=== PATIENT | male | born 1965 | race Caucasian/White ===

== ENCOUNTER → 2020-12-29 08:05 | Outpatient (BNVA) | payer MEDICARE, MEDICAID, SELFPAY | PROVIDERS: PCP Family Medicine; Visit Provider Nurse Practitioner Family | DX: G89.29 Other chronic pain (principal); M47.816 Spondylosis without myelopathy or radiculopathy, lumbar region | CPT/HCPCS: 99202 ==

== ENCOUNTER 2021-04-01 07:26 | Day surgery (SDC) | payer MEDICARE, MEDICAID, SELFPAY ==
--- NOTE | 2021-03-31 09:42 | P.CONAN_ITS ---
Documented by User: Barbara Manning NP 03/31/21 09:43 HPI - Anesthesia Eval Consult details Narrative: 56yo M for Lumbar Spinal Cord Stimulation Trial PMF Active Problems Active Problems: All Active Problems (Updated 03/23/21 @ 13:01 by Alis Pierre RN) Chronic pain (Acute) Spondylosis of lumbar region without myelopathy or radiculopathy (Acute) Diabetic neuropathy (Acute) Past Medical History Medical History Ankylosing spondylitis Anxiety disorder Arthritis Asthma Chronic pain Cluster headache Diabetes mellitus Diabetic neuropathy GERD (gastroesophageal reflux disease) Incontinence Low testosterone Surgical History Surgical History History of back surgery History of shoulder surgery Hx of knee surgery Social History Social History Patient Tobacco Use Status: Former Tobacco user Are you DNR?: Yes Advance Directives: No Advance Directives Information Provided: Yes Meds Allergies Allergy/AdvReac Type Severity Reaction Status Date / Time Sulfa (Sulfonamide Allergy Severe Seizure Verified 03/23/21 12:44 Antibiotics) Home Medications Medication Instructions Recorded Confirmed Last Taken Type adalimumab 40 mg/0.4 mL 40 mg SUBCUT Q2W 12/29/20 03/23/21 Unknown History subcutaneous syringe kit (Humira(CF)) budesonide-formoterol HFA 160 2 puff INHALATION BID 12/29/20 03/23/21 Unknown History mcg-4.5 mcg/actuation aerosol inhaler (Symbicort) cholecalciferol (vitamin D3) 50 50 mcg PO DAILY 12/29/20 03/23/21 Unknown History mcg (2,000 unit) capsule clonazepam 0.5 mg tablet 0.5 mg PO BEDTIME 12/29/20 03/23/21 Unknown History clotrimazole-betamethasone 1 1 appl TOPICAL BID 12/29/20 03/23/21 Unknown History %-0.05 % topical cream docusate sodium 100 mg capsule 100 mg PO BID 12/29/20 03/23/21 Unknown History (DOK) hydrocodone 10 mg-acetaminophen 1 tab PO TID PRN tab 12/29/20 03/23/21 Unknown History 325 mg tablet omeprazole 20 mg capsule,delayed 20 mg PO DAILY 12/29/20 03/23/21 Unknown History release polyethylene glycol 3350 17 gram 17 g PO DAILY 12/29/20 03/23/21 Unknown History oral powder packet ropinirole 0.25 mg tablet 0.25 mg PO BEDTIME 12/29/20 03/23/21 Unknown History rosuvastatin 40 mg tablet 40 mg PO DAILY 12/29/20 03/23/21 Unknown History sertraline 100 mg tablet 100 mg PO DAILY 12/29/20 03/23/21 Unknown History sumatriptan 20 mg/actuation nasal 20 mg INTRANASAL Q2H PRN 12/29/20 03/23/21 Unknown History spray testosterone enanthate 200 mg/mL 50 mg IM QWEEK 12/29/20 03/23/21 Unknown History intramuscular syringe ergocalciferol (vitamin D2) 1,250 1 cap PO QWEEK 03/23/21 03/23/21 Unknown History mcg (50,000 unit) capsule Exam Exam Date and Time: March 31, 2021941 Assessment and Plan Assessment Anesthesia Assessment: Chart Reviewed Documented by User: Rossana Ray MD 04/01/21 08:13 [facility] Active Problems Active Problems: All Active Problems (Updated 03/23/21 @ 13:01 by Alis Pierre RN) Chronic pain (Acute) Spondylosis of lumbar region without myelopathy or radiculopathy (Acute) Diabetic neuropathy (Acute) Patient denies h/o diabetes. No medication MIAH. On CPAP. Uses intermittently Obesity Past Medical History Medical History Ankylosing spondylitis Anxiety disorder Arthritis Asthma Chronic pain Cluster headache Diabetes mellitus Diabetic neuropathy GERD (gastroesophageal reflux disease) Incontinence Low testosterone Family History Family history of problems with anesthesia: No Surgical History Surgical History History of back surgery History of shoulder surgery Hx of knee surgery History of Problems with Anesthesia: No Social History Social History Patient Tobacco Use Status: Former Tobacco user Are you DNR?: Yes Advance Directives: No Advance Directives Information Provided: Yes Meds Allergies Allergy/AdvReac Type Severity Reaction Status Date / Time Sulfa (Sulfonamide Allergy Severe Seizure Verified 03/23/21 12:44 Antibiotics) Home Medications Medication Instructions Recorded Confirmed Last Taken Type adalimumab 40 mg/0.4 mL 40 mg SUBCUT Q2W 12/29/20 03/23/21 Unknown History subcutaneous syringe kit (Humira(CF)) budesonide-formoterol HFA 160 2 puff INHALATION BID 12/29/20 03/23/21 Unknown History mcg-4.5 mcg/actuation aerosol inhaler (Symbicort) cholecalciferol (vitamin D3) 50 50 mcg PO DAILY 12/29/20 03/23/21 Unknown History mcg (2,000 unit) capsule clonazepam 0.5 mg tablet 0.5 mg PO BEDTIME 12/29/20 03/23/21 Unknown History clotrimazole-betamethasone 1 1 appl TOPICAL BID 12/29/20 03/23/21 Unknown History %-0.05 % topical cream docusate sodium 100 mg capsule 100 mg PO BID 12/29/20 03/23/21 Unknown History (DOK) hydrocodone 10 mg-acetaminophen 1 tab PO TID PRN tab 12/29/20 03/23/21 Unknown History 325 mg tablet omeprazole 20 mg capsule,delayed 20 mg PO DAILY 12/29/20 03/23/21 Unknown History release polyethylene glycol 3350 17 gram 17 g PO DAILY 12/29/20 03/23/21 Unknown History oral powder packet ropinirole 0.25 mg tablet 0.25 mg PO BEDTIME 12/29/20 03/23/21 Unknown History rosuvastatin 40 mg tablet 40 mg PO DAILY 12/29/20 03/23/21 Unknown History sertraline 100 mg tablet 100 mg PO DAILY 12/29/20 03/23/21 Unknown History sumatriptan 20 mg/actuation nasal 20 mg INTRANASAL Q2H PRN 12/29/20 03/23/21 Unknown History spray testosterone enanthate 200 mg/mL 50 mg IM QWEEK 12/29/20 03/23/21 Unknown History intramuscular syringe ergocalciferol (vitamin D2) 1,250 1 cap PO QWEEK 03/23/21 03/23/21 Unknown History mcg (50,000 unit) capsule Exam Height,Weight and Vital Signs: Height 5 ft 5 in Weight 111.13 kg Airway Mallampati Class: III TM Dist: >3cm Neck ROM: Full Loose/Missing/Broken Teeth: Yes (Extraction) Heart: RRR Lungs: CTAB Assessment and Plan Assessment Anesthesia Assessment: Anesthesia Plan Discussed Final Anesthetic Review Family History of Problems with Anesthesia: No History of Problems with Anesthesia: No NPO: Yes ASA Class: III Final Preanesthetic Review: No Changes in Pt Med Stat, Meds/Allgs Chart Reviewed, Consent Obtained/Reviewed, Anes Risks/Benef Reviewed and DNR Form (If Appl.) Patient Risk: Intermediate Procedure Risk: Low Assessment/Block/Sedation in SS: Assess/Block/Sedation-SS Anesthetic Plan Anesthetic Plan: GA Disposition: Standard PACU
[2021-04-01] VITALS (9 sets, daily range): BP systolic 116–149; BP diastolic 56–81; PULSE 62–87; RESP 16–20; TEMP 36.2–36.9; O2SAT 96–99; BMI 40.7
--- NOTE | ~2021-04-01 | FL_ITS ---
EXAMINATION: XR FLUOROSCOPY WITH IMAGES CLINICAL INFORMATION: Spinal cord stimulator trial. COMPARISON: None TECHNIQUE: Fluoroscopy performed by Dr. Eduardo Mondragon. Fluoroscopy time: 15.2 minutes DAP: 88.0 mGycm2 Images: 2 FINDINGS: There are posterior epidural electrodes extending from T9 through T12 vertebrae. There are moderate right bridging osteophytes from T8-T9 through T11-T12 disc levels. No aggressive lytic or sclerotic process seen. FL/FL guidance in OR IMPRESSION: Fluoroscopy was provided to referring physician for pain management.
--- NOTE | 2021-04-01 08:00 | MHC.SHP ---
Pre-Procedural Eval Section A Date of Service: 04/01/21 Section B Chief Complaint: type ii diabetes mellitus with neuropathy Details of Present Illness: as above, as well as spondylosis lumbar spine without radiculo Relevant Family History (Specify if Yes): No Relevant Social History: None Present Medications: None Medical History: Significant History (DM type two) History of Previous Operations: No relevant previous surgery Allergies: Allergies Allergy/AdvReac Type Severity Reaction Status Date / Time Sulfa (Sulfonamide Allergy Severe Seizure Verified 03/23/21 12:44 Antibiotics) Review of Systems Sugical H&P ROS: Negative: Cardiovascular, Respiratory, Neurological, Psychiatric, Hem-Onc, Allergic/Immunologic, Gastrointestinal, Genitourinary, Integumentary and Eyes/Ears/Nose/Throat and Yes, Specify: Constitution (korbid obesity), Musculoskeletal (spondylosis lumbar spine without myelo or radiculopathy) and Endocrine (DM II) Exam Surgical H&P Exam: Normal: HEENT, Normal: Heart, Normal: Lungs, Normal: Extremities, Normal: Skin and Normal: Neurological and Significant Findings: Abdomen (greatly enlarged) Plan Diagnosis/Plan: Unchanged I have reviewed the history and physical and performed a pertinent physical examination on my patient. No changes have occurred unless specified.
--- NOTE | 2021-04-01 08:04 | P.OP_ITS ---
Operative Note Operative Note Date of Service: 04/01/21 Narrative: Gael is a very pleasant 56 y.o. old gentleman? who came today into the operating room for trial of spinal cord stimulator for the treatment of neuropathy of bilateral lower extremities and low back pain secondary sponylos is. Preoperatively patient received cefasolin 2 g approximately 30 minutes before the procedure. After obtaining informed consent the patient was brought to the operating room, HE was positioned supine on the stretcher, [place] [employer] monitors were applied and patient was administered general endotracheal anesthesia. The patient after that was transferred on the OR table prone, all pressure points were protected. ?Time-out was performed delineating correct site, side, the nature of the procedure, patient's allergy, preoperative antibiotic if needed.? All operating room staff was participating in OR time-out procedure. Patient's entire back was prepped with ChloraPrep twice and draped with full body fenestrated drape.? Sterilely draped C-arm was brought over operating field and sqare picture of T12, L1, L2, L3 vertebrae as were demonstrated on the screen.? Attention FIRST? was concentrated on the T12-L1 epidural interspace on the right.? The location of the projection of the right pedicle center of the? L2 vertebra was found on the skin using C-arm.? This location was injected with mixture of lidocaine 2% and Marcaine 0.5% 5 cc.? After that 11 blade was used to make a suman on the skin.? 10 cm 14 gauge? introducer epidural needle was inserted through the suman and advanced to? [id number] interspace.? The advancement of the needle was performed on anterior posterior and lateral views.? Guitar wire and loss of resistance technique were used to locate epidural space.? When guitar wire was spread in the epidural fashion, epidural lead was inserted through the needle and attempt was made to advance epidural electrode array lead to T8 position in the posterior epidural space. it was very difficult to advance epidural lead in the posterior epidural space. Eventually epidural lead went through the dura matter and we observe CSF coming from the needle. The needle was withdrawn and pressure was applied. After that location of the projection of the LEFT pedicle center of the L2 vertebra was found on the skin using C-arm.? This location was injected with mixture of lidocaine 2% and Marcaine 0.5% 5 cc.? After that 11 blade was used to make a suman on the skin.? 10 cm 14 gauge curved introducer epidural needle was inserted through the suman and advanced [id number] epidural interspace on the left.? The advancement of the needle was performed on anterior posterior and lateral views.? Guitar wire and loss of resistance technique were used to locate epidural space.? When guitar wire was spread in the epidural fashion, epidural lead was inserted through the needle and advanced to the middle of T8 epidural interspace strictly at the midline.The locstion of the lead in the posterior epidural space was verified on lateral view. After that location of the projection of the right pedicle center of the L3 vertebra was found on the skin using C-arm.? This location was injected with mixture of lidocaine 2% and Marcaine 0.5% 5 cc.? After that 11 blade was used to make a suman on the skin.? 10 cm 14 gauge curved introducer epidural needle was inserted through the suman and advanced to L1-L2 epidural interspace.? The advancement of the needle was performed on anterior posterior and lateral views.? Guitar wire and loss of resistance technique were used to locate epidu ral space.? When guitar wire was spread in the epidural fashion, epidural lead was inserted through the needle and advanced to the middle of T8 epidural interspace slightly right to the existing epidural lead. The needles were withdrawn, the stylette wires were removed from the epidural leads.? The anchoring devices were dislodged on the leads and advanced to the level of the skin.? The anchoring devices were sutured with two 0-0 silk sutures per each anchor to the skin of the patient. The central fixation screw of each anchor was rotated until three clicks were heard. The leads were connected to testing device.? Impedance was checked and was satisfactory Bacitracin ointment was applied to the entrance point of bilateral needles.? Sterile dressing was applied to the patient's back.? The testing device was also glued to the patient's back.? After completion of the procedure the patient was turned supine , awaken and extubated, he was transfered to PACU. He recovered uneventfully in PACU reporting slight frontal headache. Fioricet was prescribed, conservative management of PDPH was explained to the patient.
[2021-04-01] MEDS: Lactated Ringers 1,000 ML 100 ML IVCONT (08:07)
--- NOTE | 2021-04-01 10:28 | PM.OP ---
Brief Operative Note Date of Service: 04/01/21 Pre-op diagnosis: spondylosis lumbar spine, diabetic polyneuropathy Post-op diagnosis: same Procedure: trial of Nevro HF10 Spinal cord stimulation Implants: Nothing permanent Surgeon: Eduardo Mondragon MD Anesthesia: GETA Was an Pyrometer Temperature Regulator used for this Procedure?: No Estimated blood loss (mL): 3 Pathology: none sent Condition: stable Disposition: PACU
[2021-04-01] MEDS: Butalb/Acetamin/Caff 50/325/40 TABLET 1 TAB PO (11:01)
== END 2021-04-01 12:31 | disposition home or self-care (01) ==
PROVIDERS: PCP Family Medicine; Visit Provider Anesthesiology
PROC: (CPT 63650; principal; 2021-04-01 08:40)
DX: M47.816 Spondylosis without myelopathy or radiculopathy, lumbar region (principal); M45.7 Ankylosing spondylitis of lumbosacral region; M54.50 Low back pain, unspecified; G89.29 Other chronic pain; E11.42 Type 2 diabetes mellitus with diabetic polyneuropathy; N31.9 Neuromuscular dysfunction of bladder, unspecified; Z79.899 Other long term (current) drug therapy; Z88.2 Allergy status to sulfonamides; Z87.828 Personal history of other (healed) physical injury and trauma; Z91.81 History of falling; Z87.891 Personal history of nicotine dependence
CPT/HCPCS: 63650 ×2; C1713; C1778; J0330; J0690; J1100; J2250; J2405; J3010

== ENCOUNTER → 2021-04-07 08:19 | Outpatient (BNVA) | payer MEDICARE, MEDICAID, SELFPAY | PROVIDERS: PCP Family Medicine; Visit Provider Anesthesiology | DX: M47.816 Spondylosis without myelopathy or radiculopathy, lumbar region (principal); G89.29 Other chronic pain; E11.40 Type 2 diabetes mellitus with diabetic neuropathy, unspecified | CPT/HCPCS: 99212 ==

== ENCOUNTER 2021-05-20 07:43 | Day surgery (SDC) | payer MEDICARE, MEDICAID, SELFPAY ==
[2021-05-16 11:03] VITALS: BMI 40.7
--- NOTE | 2021-05-19 09:06 | HO.ANESPROP2 ---
Documented by User: Barbara Manning NP 05/19/21 09:08 HPI - Anesthesia Eval Consult details Narrative: 56yo M for Spinal Cord Stimulation Implant s/p trial 03/2021 with GA-ETT 7.5 PMFSH Active Problems Active Problems: All Active Problems (Updated 05/16/21 @ 11:06 by Vibha Lawton RN) Chronic pain (Acute) Spondylosis of lumbar region without myelopathy or radiculopathy (Acute) Diabetic neuropathy (Acute) Past Medical History Medical History (Updated 05/16/21 @ 11:06 by Vibha Lawton RN) Ankylosing spondylitis Anxiety disorder Arthritis Asthma Chronic pain Cluster headache COVID-19 vaccine series completed Diabetes mellitus Diabetic neuropathy GERD (gastroesophageal reflux disease) Incontinence Low testosterone S/P placement of nerve stimulator Family History Family history of problems with anesthesia: No Surgical History Surgical History History of back surgery History of shoulder surgery Hx of knee surgery History of Problems with Anesthesia: No Social History Social History Are you a primary assisted living care manager to a significant other at home: No Do you presently have visiting nurse or other home services: No Patient Tobacco Use Status: Former Tobacco user Quit Date: age 41 Tobacco use type: Cigarette Are you DNR?: Yes Advance Directives: No Advance Directives Information Provided: Yes Advance Directives on File: No Recently lost weight without trying: No Eating poorly because of decreased appetite: No Nutrition Risks: No Nutritional Risk Meds Allergies Allergy/AdvReac Type Severity Reaction Status Date / Time Sulfa (Sulfonamide Allergy Severe Seizure Verified 05/20/21 08:16 Antibiotics) Home Medications Medication Instructions Recorded Confirmed Last Taken Type adalimumab 40 mg/0.4 mL 40 mg SUBCUT Q2W 12/29/20 05/16/21 Unknown History subcutaneous syringe kit (Humira(CF)) budesonide-formoterol HFA 160 2 puff INHALATION BID 12/29/20 05/16/21 05/20/21 04:30 History mcg-4.5 mcg/actuation aerosol inhaler (Symbicort) cholecalciferol (vitamin D3) 50 50 mcg PO DAILY 12/29/20 05/16/21 Unknown History mcg (2,000 unit) capsule clonazepam 0.5 mg tablet 0.5 mg PO BEDTIME 12/29/20 05/16/21 Unknown History clotrimazole-betamethasone 1 1 appl TOPICAL BID 12/29/20 05/16/21 Unknown History %-0.05 % topical cream docusate sodium 100 mg capsule 100 mg PO BID 12/29/20 05/16/21 Unknown History (DOK) hydrocodone 10 mg-acetaminophen 1 tab PO TID PRN tab 12/29/20 05/16/21 05/20/21 04:30 History 325 mg tablet omeprazole 20 mg capsule,delayed 20 mg PO DAILY 12/29/20 05/16/21 05/20/21 04:30 History release polyethylene glycol 3350 17 gram 17 g PO DAILY 12/29/20 05/16/21 Unknown History oral powder packet ropinirole 0.25 mg tablet 0.25 mg PO BEDTIME 12/29/20 05/16/21 Unknown History rosuvastatin 40 mg tablet 40 mg PO DAILY 12/29/20 05/16/21 Unknown History sertraline 100 mg tablet 100 mg PO DAILY 12/29/20 05/16/21 05/20/21 04:30 History sumatriptan 20 mg/actuation nasal 20 mg INTRANASAL Q2H PRN 12/29/20 05/16/21 Unknown History spray testosterone enanthate 200 mg/mL 50 mg IM QWEEK 12/29/20 05/16/21 Unknown History intramuscular syringe ergocalciferol (vitamin D2) 1,250 1 cap PO QWEEK 03/23/21 05/16/21 05/20/21 04:30 History mcg (50,000 unit) capsule Exam Exam Date and Time: May 19, 2021 0906 Height,Weight and Vital Signs: Height 5 ft 5 in Weight 111.13 kg Assessment and Plan Assessment Anesthesia Assessment: Chart Reviewed Final Anesthetic Review Family History of Problems with Anesthesia: No History of Problems with Anesthesia: No Documented by User: Amol Koo MD 05/20/21 10:13 HPI - Anesthesia Eval Consult details Narrative: 56yo M for Spinal Cord Stimulation Implant MIAH on CPAP Restless leg syndrome s/p trial 03/2021 with GA-ETT 7.5 PMFSH Past Medical History Medical History (Updated 05/16/21 @ 11:06 by Vibha Lawton, LUIS) Ankylosing spondylitis Anxiety disorder Arthritis Asthma Chronic pain Cluster headache COVID-19 vaccine series completed Diabetes mellitus Diabetic neuropathy GERD (gastroesophageal reflux disease) Incontinence Low testosterone S/P placement of nerve stimulator Surgical History Surgical History History of back surgery History of shoulder surgery Hx of knee surgery Social History Social History Are you a primary assisted living care manager to a significant other at home: No Do you presently have visiting nurse or other home services: No Patient Tobacco Use Status: Former Tobacco user Quit Date: age 41 Tobacco use type: Cigarette Are you DNR?: Yes Advance Directives: No Advance Directives Information Provided: Yes Advance Directives on File: No Recently lost weight without trying: No Eating poorly because of decreased appetite: No Nutrition Risks: No Nutritional Risk Meds Allergies Allergy/AdvReac Type Severity Reaction Status Date / Time Sulfa (Sulfonamide Allergy Severe Seizure Verified 05/20/21 08:16 Antibiotics) Home Medications Medication Instructions Recorded Confirmed Last Taken Type adalimumab 40 mg/0.4 mL 40 mg SUBCUT Q2W 12/29/20 05/16/21 Unknown History subcutaneous syringe kit (Humira(CF)) budesonide-formoterol HFA 160 2 puff INHALATION BID 12/29/20 05/16/21 05/20/21 04:30 History mcg-4.5 mcg/actuation aerosol inhaler (Symbicort) cholecalciferol (vitamin D3) 50 50 mcg PO DAILY 12/29/20 05/16/21 Unknown History mcg (2,000 unit) capsule clonazepam 0.5 mg tablet 0.5 mg PO BEDTIME 12/29/20 05/16/21 Unknown History clotrimazole-betamethasone 1 1 appl TOPICAL BID 12/29/20 05/16/21 Unknown History %-0.05 % topical cream docusate sodium 100 mg capsule 100 mg PO BID 12/29/20 05/16/21 Unknown History (DOK) hydrocodone 10 mg-acetaminophen 1 tab PO TID PRN tab 12/29/20 05/16/21 05/20/21 04:30 History 325 mg tablet omeprazole 20 mg capsule,delayed 20 mg PO DAILY 12/29/20 05/16/21 05/20/21 04:30 History release polyethylene glycol 3350 17 gram 17 g PO DAILY 12/29/20 05/16/21 Unknown History oral powder packet ropinirole 0.25 mg tablet 0.25 mg PO BEDTIME 12/29/20 05/16/21 Unknown History rosuvastatin 40 mg tablet 40 mg PO DAILY 12/29/20 05/16/21 Unknown History sertraline 100 mg tablet 100 mg PO DAILY 12/29/20 05/16/21 05/20/21 04:30 History sumatriptan 20 mg/actuation nasal 20 mg INTRANASAL Q2H PRN 12/29/20 05/16/21 Unknown History spray testosterone enanthate 200 mg/mL 50 mg IM QWEEK 12/29/20 05/16/21 Unknown History intramuscular syringe ergocalciferol (vitamin D2) 1,250 1 cap PO QWEEK 03/23/21 05/16/21 05/20/21 04:30 History mcg (50,000 unit) capsule Exam Airway Mallampati Class: IV TM Dist: >3cm Loose/Missing/Broken Teeth: Yes (Fillings as well as missing teeth . ) Heart: S1 S2 Lungs: b/l breath sounds Assessment and Plan Assessment Anesthesia Assessment: Anesthesia Plan Discussed Final Anesthetic Review NPO: Yes ASA Class: III Final Preanesthetic Review: No Changes in Pt Med Stat, Meds/Allgs Chart Reviewed, Consent Obtained/Reviewed and Anes Risks/Benef Reviewed Patient Risk: Intermediate Procedure Risk: Intermediate Anesthetic Plan Anesthetic Plan: GA Disposition: Standard PACU
[2021-05-20] VITALS (7 sets, daily range): BP systolic 121–159; BP diastolic 70–85; PULSE 70–97; RESP 12–16; TEMP 36.6–37.2; O2SAT 94–97
--- NOTE | ~2021-05-20 | FL_ITS ---
EXAMINATION: XR FLUOROSCOPY WITH IMAGES CLINICAL INFORMATION: Spinal cord stimulator implant. COMPARISON: Fluoroscopic spot views 04/01/2021 TECHNIQUE: Fluoroscopy performed by Dr. Eduardo Mondragon. Fluoroscopy time: 3.5 minutes DAP: 28.8 Gycm2 Images: 3 FINDINGS: There are 2 spinal stimulator leads ascending the posterior spinal canal with tips overlying mid dorsal spine approximately superior and inferior endplates T9. There are multilevel degenerative changes with bridging osteophytes. No destructive process. FL/FL guidance in OR IMPRESSION: Fluoroscopy for pain management procedure.
--- NOTE | 2021-05-20 08:11 | P.OP_ITS ---
Operative Note Operative Note Date of Service: 05/20/21 Narrative: Gael is 56 years old male who came today into the operating room for the implant of spinal cord stimulator for the treatment of post laminectomy syndrome. Preoperatively patient receive cefazolin 3 g IV approximately 30 minutes before the procedure. After obtaining informed consent the patient was brought to the operating room, HE was positioned supine on the stretcher, [employer] monitors were applied a general? anesthesia of was administered with endotracheal intubation?.? After that patient was repositioned prone on the operating table, all pressure points were protected. ?Time-out was performed delineating correct site, side, the nature of the procedure, patient's allergy, preoperative antibiotic if needed.? All operating room staff was participating in OR time-out procedure. ?Location of the L1-L2 L3 spinous processes was injected with Local local anesthetic mixture lidocaine 2% and bupivacaine 0.5%. ? Strict midline 6 cm incision using scalpel 10 blade was made the projections of the spinous processes L1-L2-L3 . thorough hemostasis was obtained using Bovie device and? prevertebral fascia was freed from overlying tissues. Attention FIRST? was concentrated on the? T12-L1 epidural interspace.? The location of the projection of the right pedicle center of the L2 vertebra was found on the fascia using C-arm.? This location was injected with mixture of lidocaine 2% and Marcaine 0.5% 5 cc.?? 10 cm 14 gauge? introducer epidural needle was inserted into the fascia and advanced to? T12-L1 epidural interspace.? The advancement of the needle was performed on anterior posterior and lateral views.? Guitar wire and loss of resistance technique were used to locate epidural space.? When guitar wire was spread in the epidural fashion, epidural lead was inserted through the needle and it was advanced to? top of T8 level in the posterior epidural space. Location of the lead in the posterior epidural space was verified by C-arm. After that? the location of the projection of the LEFT pedicle center of the ? [id number] was found using C-arm.? This location was injected with mixture of lidocaine 2% and Marcaine 0.5% 5 cc.?.? 10 cm 14 gauge introducer epidural ne edle was inserted through the suman and advanced to [id number] interspace.? The advancement of the needle was performed on anterior posterior and lateral views.? Guitar wire and loss of resistance technique were used to locate epidural space.? When guitar wire was spread in the epidural fashion, epidural lead was inserted through the needle and advanced to the? adenoid process of bottom of T8 in the projection? in the posterior epidural space slightly? left to the existing electrode. The needles were withdrawn, the stylette wires were removed from the epidural leads.? The anchoring devices were dislodged on the leads and advanced to the level of the ? Prevertebral fascia? The anchoring devices were sutured with two 0-0? Tycron suture per each anchor to the prevertebral fascia of the patient. The central fixation screw of each anchor was rotated until three clicks were heard.? thorough irrigation of the wound was performed and wound was packed with three vancomycin soaked? 4 x 4s. then attention was concentrated on the posterior flank right lloin of the patient on the right were the decision was made to implant the battery.? 2 cm below the lowest point of the right rib horizontal incison was made 6.5 cm long using 10 blade scalpel hemostasis was performed using -bovie.? Using sharp and dull dissection pocket for the battery was formed in caudad direction from the incision.? After that the? wound pocket was irrigated with vancomycin containing normal saline and tunneling device was used to connect midline incision and flank incision.? The epidural leads were dislodged from midline incision to the flank incision through the tunneling device.? After that they were connected to the [employer] HF 10 battery and H of 10 battery was connected with testing device.? Impedance was found satisfactory.? Anchoring? screws were fix on the back of the battery.? Tycron of 1 0 sutures were applied to the superior lateral and superior medial corners of the upper portion of the pocket? wound and after that the anchoring sutures were connected to the orifices on the battery.? Electrodes were gathered behind the body of the battery and battery was dislodged into under subcutaneous pocket.? The sutures were tied and irrigation was repeated.? After that 0 Polysorb sutures were used to close the? both wounds and the 2/o polisorb sutures were used to apptoximate the level of the skin , Narciso were applied to the skin and bacitracin ointment was applied to the staple lines. The sterile dressing comprised of several 4x4 for each wound was affixed to the skin [facility] tape. The patient was transfered supine on the stretcher,? awaken, extubated and transferred stable to the PACU.
--- NOTE | 2021-05-20 08:11 | MHC.SHP ---
Pre-Procedural Eval Section A Date of Service: 05/20/21 The patient is an INPATIENT: No Changes since office visit: Yes Patient answered all questions The History & Physical has been completed within 30 days and I have reviewed it.: No Section B Chief Complaint: type 2 diabetes,spondylosis without myelopathy Details of Present Illness: as above Relevant Family History (Specify if Yes): No Relevant Social History: None Present Medications: see Short Stay Collaborative assessment Medical History: No relevant PMH History of Previous Operations: No relevant previous surgery Allergies: Allergies Allergy/AdvReac Type Severity Reaction Status Date / Time Sulfa (Sulfonamide Allergy Severe Seizure Verified 04/07/21 09:11 Antibiotics) Review of Systems Sugical H&P ROS: Negative: Cardiovascular, Respiratory, Neurological, Psychiatric, Hem-Onc, Allergic/Immunologic, Gastrointestinal, Genitourinary, Musculoskeletal, Integumentary, Endocrine and Eyes/Ears/Nose/Throat and Yes, Specify: Constitution (obesity) Exam Surgical H&P Exam: Normal: HEENT, Normal: Heart, Normal: Lungs, Normal: Extremities, Normal: Skin and Normal: Neurological and Significant Findings: Abdomen (enlarged) Plan Diagnosis/Plan: Unchanged I have reviewed the history and physical and performed a pertinent physical examination on my patient. No changes have occurred unless specified.
[2021-05-20] MEDS: Lactated Ringers 1,000 ML 100 ML IVCONT (09:09)
--- NOTE | 2021-05-20 09:18 | PC.NURSE ---
Patient states he has filled out DNR code status paperwork before. Paperwork is not with patient nor scanned in the system. Health Care Proxy is patients sister Sakshi Bruno, phone [phone].
--- NOTE | 2021-05-20 12:10 | P.BOP_ITS ---
Brief Operative Note Date of Service: 05/20/21 Pre-op diagnosis: type 2 diabetes,spondylosis without myelopathy Post-op diagnosis: same Procedure: implantation of SCS Nevro Implants: SCS battery and 2 epidural leads. Surgeon: Eduardo Mondragon MD Anesthesia: GETA Was an [employer] used for this Procedure?: No Estimated blood loss (mL): 26 Pathology: none sent Condition: stable Disposition: PACU
== END 2021-05-20 14:50 ==
LOC: HO.SSS 07:44
PROVIDERS: PCP Family Medicine; Visit Provider Anesthesiology
PROC: (CPT 63685; principal; 2021-05-20 09:40)
DX: M47.816 Spondylosis without myelopathy or radiculopathy, lumbar region (principal); E11.40 Type 2 diabetes mellitus with diabetic neuropathy, unspecified; N31.9 Neuromuscular dysfunction of bladder, unspecified; M45.9 Ankylosing spondylitis of unspecified sites in spine; G89.29 Other chronic pain; G44.009 Cluster headache syndrome, unspecified, not intractable; R32 Unspecified urinary incontinence; J45.909 Unspecified asthma, uncomplicated; Z87.891 Personal history of nicotine dependence; Z88.2 Allergy status to sulfonamides; Z98.890 Other specified postprocedural states; Z87.828 Personal history of other (healed) physical injury and trauma
CPT/HCPCS: 63685; 63650 ×2; C1713; C1778; C1787; C1816; J0330; J0690; J1100; J2250; J2405; J3010; J3370

== ENCOUNTER → 2021-05-26 09:47 | Outpatient (BNVA) | payer MEDICARE, MEDICAID, SELFPAY | PROVIDERS: PCP Family Medicine; Visit Provider Anesthesiology | DX: G89.29 Other chronic pain (principal); M47.816 Spondylosis without myelopathy or radiculopathy, lumbar region; E11.40 Type 2 diabetes mellitus with diabetic neuropathy, unspecified; Z96.82 Presence of neurostimulator; Z98.890 Other specified postprocedural states | CPT/HCPCS: 99212 ==

== ENCOUNTER → 2021-06-02 09:57 | Outpatient (BNVA) | payer MEDICARE, MEDICAID, SELFPAY | PROVIDERS: PCP Family Medicine; Visit Provider Nurse Practitioner Family | DX: Z48.89 Encounter for other specified surgical aftercare (principal); G89.29 Other chronic pain; M47.816 Spondylosis without myelopathy or radiculopathy, lumbar region; Z96.89 Presence of other specified functional implants | CPT/HCPCS: 99212 ==